=== PATIENT | female | born 1990 | race Caucasian/White ===

== ENCOUNTER 2021-06-23 08:58 | Emergency (ER) | payer MEDICAID ==
[~2021-06-23] VITALS: Ht 165.1 cm; Wt 84.4 kg
[2021-06-23 09:03] VITALS: BP 139/86
--- NOTE | 2021-06-23 09:11 | NUR ---
AMBULATED TO BED 8
[2021-06-23] MEDS ORDERED: ONDANSETRON 4 MG ODT PO ONE (09:15)
--- NOTE | 2021-06-23 09:19 | NUR ---
Troy myrick in ED - 06/23/21 at [address] Lilly is evalutaing pt at bedside
--- NOTE | 2021-06-23 09:20 | NUR ---
30 y/o F BIB self from home c/o nausea, shakiness and fatigue since yesterday. Patient A&Ox4, ambulatory, states she began feeling yesterday. States "Not feeling well" today while at work and has been feeling increasingly more fatigued with "palpitations." Pt states head feels cloudy with "fogginess." Denies chest pain, dysuria, abdominal pain, fever, chills, headache. Reports panic attacks in the past and states symptoms did not feel like previous anxiety symptoms. Denies meds prior to arrival. Bed locked in lowest position, side rails x 1. MEDHX: anxiety Meds: Denies ALLERGIES: DENIES
--- NOTE | 2021-06-23 09:38 | NUR ---
Dr. Lilly is evaluating pt at bedside
--- NOTE | 2021-06-23 09:44 | NUR ---
EMT at bedside for EKG
--- NOTE | 2021-06-23 09:47 | NUR ---
Lab at bedside
[2021-06-23 10:02] LABS: BASOPHILS % (AUTO) 0.5 % (0.0-2.0); EOSINOPHILS # (AUTO) 0.1 K/uL (0-0.4); EOSINOPHILS % (AUTO) 0.7 % (0.0-4.0); HEMATOCRIT 40.3 % (36-48); HEMOGLOBIN 13.6 g/dL (12.0-16.0); LYMPHOCYTES # (AUTO) 1.8 K/uL (2.5-16.5); MEAN CORPUSCULAR HEMOGLOBIN 30 pg (27-31); MEAN CORPUSCULAR HGB CONC 34 g/dL (33-37); MEAN CORPUSCULAR VOLUME 88.2 fL (80-94); MONOCYTES # (AUTO) 0.6 K/uL (0.8-1.0); MONOCYTES % (AUTO) 5.9 % (1.7-9.3); NEUTROPHILS # (AUTO) 7.1 K/uL (1.8-7.7); NEUTROPHILS % (AUTO) 73.9 % (42.2-75.2); PLATELET COUNT (AUTO) 359 K/uL (140-450); RED BLOOD CELL COUNT(AUTO) 4.57 MIL/uL (4.20-5.40); RED CELL DISTRIBUTION WIDTH 13.5 % (11.6-13.7); WHITE BLOOD COUNT (AUTO) 9.6 K/uL (4.8-10.8)
[2021-06-23 10:11] LABS: BILIRUBIN,URINE NEGATIVE (NEGATIVE); BLOOD, URINE 1+ (NEGATIVE); LEUKOCYTE ESTERASE ,URINE 1+ (NEGATIVE); NITRITE, URINE NEGATIVE (NEGATIVE); UGLUCOSE NEGATIVE (NEGATIVE)
[2021-06-23 10:14] LABS: ANION GAP 13.7 (8-16); CREATININE 0.7 mg/dL (0.6-1.3); POTASSIUM 3.7 mmol/L (3.5-5.1)
--- NOTE | 2021-06-23 10:18 | NUR ---
[place] provided for pt. Pt states + relief to nausea. All pt needs met.
[2021-06-23 10:20] LABS: APPEARANCE,URINE HAZY (CLEAR); COLOR,URINE YELLOW (YELLOW)
[2021-06-23 10:27] LABS: URINE AMORPHOUS URATE None Seen /HPF (None Seen)
[2021-06-23 10:29] LABS: FREE T4 (FREE THYROXINE) 0.96 ng/dL (0.76-1.46); THYROID STIMULATING HORMONE 0.63 uIU/mL (0.34-3.74)
[2021-06-23 11:03] VITALS: BP 137/83
[2021-06-23] MEDS ORDERED: ONDA-188 SL (12:31)
[2021-06-23] MEDS ORDERED: CEPH-588 PO (12:31)
--- NOTE | 2021-06-23 12:50 | NUR ---
Patient discharged with v/s stable. Written and verbal after care instructions given and explained. Patient alert, oriented and verbalized understanding of instructions. Ambulatory with steady gait. All questions addressed prior to discharge. ID band removed. Patient advised to follow up with PMD. Rx of Alicia Gore ODT given. Patient educated on indication of medication including possible reaction and side effects. Opportunity to ask questions provided and answered. Addendum: 06/23/21 at 1255 by [facility] Work note provided per pt request. D/c instructions regarding palpitations, fatigue, UTI provided.
== END 2021-06-23 12:50 | disposition home or self-care (01) ==
LOC: MED 08:58
DX: N39.0 Urinary tract infection, site not specified (principal); R53.83 Other fatigue; Z79.899 Other long term (current) drug therapy; Z79.2 Long term (current) use of antibiotics
CPT/HCPCS: 36415; 80048; 81001; 81025; 83735; 84439; 84443; 85025; 87086; 93005; 99284; Q0162

== ENCOUNTER 2022-03-25 13:24 | Emergency (ER) | payer MEDICAID ==
[~2022-03-25] VITALS: Ht 162.6 cm; Wt 80.3 kg
[~2022-03-25 13:24] MED LIST: CEPH-588 PO; ONDA-188 SL
[2022-03-25 13:56] VITALS: BP 119/77
--- NOTE | 2022-03-25 14:04 | NUR ---
VA: RIGHT EYE 20/25, LEFT EYE 20/25, BOTH EYES 20/25
--- NOTE | 2022-03-25 14:30 | NUR ---
C/O L BIG TOE PAIN X 3 DAYS AND C/O BLURRED VISION, SHAKING X TODAY. VA: RIGHT EYE 20/25, LEFT EYE 20/25, BOTH EYES 20/25 PMH: ANXIETY
[2022-03-25] MEDS ORDERED: IBUP-2213 PO (14:51)
[2022-03-25] MEDS ORDERED: CEPH-588 PO (14:51)
--- NOTE | 2022-03-25 15:33 | NUR ---
Patient discharged with v/s stable. Written and verbal after care instructions given and explained. Patient verbalized understanding. Ambulatory with steady gait. All questions addressed prior to discharge. Advised to follow up with PMD.
--- NOTE | 2022-03-25 15:34 | NUR ---
The patient's care was reviewed and supervised by Khang Rviera RN.
== END 2022-03-25 15:33 | disposition home or self-care (01) ==
LOC: MED 13:24
DX: L60.0 Ingrowing nail (principal)
CPT/HCPCS: 81002; 81025; 99283

== ENCOUNTER 2022-07-16 19:18 | Emergency (ER) | payer MEDICAID ==
[~2022-07-16] VITALS: Ht 165.1 cm; Wt 88.9 kg
[~2022-07-16 19:18] MED LIST changes: +IBUP-2213 PO
[2022-07-16 19:27] VITALS: BP 141/86
[2022-07-16 19:53] LABS: BILIRUBIN,URINE NEGATIVE (NEGATIVE); BLOOD, URINE 2+ (NEGATIVE); COLOR,URINE YELLOW (YELLOW); LEUKOCYTE ESTERASE ,URINE 1+ (NEGATIVE); NITRITE, URINE NEGATIVE (NEGATIVE); PH,URINE 5.5 (5.0-9.0); UGLUCOSE NEGATIVE (NEGATIVE)
[2022-07-16 19:54] LABS: APPEARANCE,URINE HAZY (CLEAR)
[2022-07-16 20:09] LABS: RBC,URINE 0-5 /HPF (0-5)
[2022-07-16] MEDS ORDERED: FLUC150T PO (20:13)
[2022-07-16] MEDS ORDERED: ONDA-188 PO (20:13)
[2022-07-16] MEDS ORDERED: CEPH-588 PO (20:13)
[2022-07-16] MEDS ORDERED: LIDOCAINE MPF 1% 5 ML ONE (20:32)
[2022-07-16] MEDS ORDERED: cefTRIAXone 1,000 MG VIAL ONE (20:32)
[2022-07-16] MEDS: ONDANSETRON 4 MG ODT PO ONE (20:36)
[2022-07-16] MEDS: cefTRIAXone 1,000 MG in LIDOCAINE MPF 1% 2.1 ML IM ONE (20:37)
[2022-07-16 20:52] VITALS: BP 127/85
== END 2022-07-16 20:52 | disposition home or self-care (01) ==
LOC: MED 19:18
DX: N39.0 Urinary tract infection, site not specified (principal); R11.0 Nausea; Z79.899 Other long term (current) drug therapy
CPT/HCPCS: 81001; 81025; 87086; 96372; 99283; J0696; J2001; Q0162

== ENCOUNTER 2022-08-28 07:34 | Emergency (ER) | payer MEDICAID ==
[~2022-08-28] VITALS: Ht 165.1 cm; Wt 89.5 kg
[~2022-08-28 07:34] MED LIST changes: +FLUC150T PO; +ONDA-188 PO
[2022-08-28 07:37] VITALS: BP 140/77
--- NOTE | 2022-08-28 07:46 | NUR ---
PT AMB TO BED 3
[2022-08-28] MEDS ORDERED: PHEN177S23 PO (07:48)
[2022-08-28] MEDS ORDERED: NAPR-1704 PO (07:48)
--- NOTE | 2022-08-28 07:50 | NUR ---
BIB SELF C/O COUGH X LAST NIGHYT, SORE THROAT& FEVER X 2 DAYS. DENIES N/V/D; SKIN IS PINK/WARM/DRY; AAOX4 WITH EVEN AND STEADY GAIT; LUNGS CLEAR BL. PT DENIES ANY FEVER, CP OR SOB AT THIS TIME; PATIENT STATES PAIN OF 7/10 AT THIS TIME. PATIENT POSITIONED FOR COMFORT; HOB ELEVATED; BEDRAILS UP X1; BED DOWN. ER MD MADE AWARE OF PT STATUS.
[2022-08-28 08:05] VITALS: BP 132/72
--- NOTE | 2022-08-28 08:05 | NUR ---
Patient discharged with v/s stable. Written and verbal after care instructions given and explained. Patient alert, oriented and verbalized understanding of instructions. Ambulatory with steady gait. All questions addressed prior to discharge. ID band removed. Patient advised to follow up with PMD. Rx of NAPROSYN, PHENOL given. Patient educated on indication of medication including possible reaction and side effects. Opportunity to ask questions provided and answered.
[2022-08-29] MEDS ORDERED: AMOX500C25 PO (05:11)
[2022-08-29] MEDS ORDERED: ACET-8905 PO (05:11)
== END 2022-08-28 08:05 | disposition home or self-care (01) ==
LOC: MED 07:34
DX: J03.90 Acute tonsillitis, unspecified (principal); Z20.822 Contact with and (suspected) exposure to COVID-19; Z90.49 Acquired absence of other specified parts of digestive tract; Z79.899 Other long term (current) drug therapy; Z98.890 Other specified postprocedural states
CPT/HCPCS: 87081; 99283

== ENCOUNTER 2022-08-29 03:57 | Emergency (ER) | payer MEDICAID ==
[~2022-08-29] VITALS: Ht 165.1 cm; Wt 89.4 kg
[~2022-08-29 03:57] MED LIST changes: +NAPR-1704 PO; +PHEN177S23 PO
[2022-08-29 04:12] VITALS: BP 117/71
--- NOTE | 2022-08-29 04:18 | NUR ---
Strep A swabs collected and sent to lab.
[2022-08-29] MEDS ORDERED: ACETAMINOPHEN EXTRA STRENGTH 500 MG TAB PO ONE (04:25)
--- NOTE | 2022-08-29 04:51 | NUR ---
PT AMB TO ER BED 03.
--- NOTE | 2022-08-29 05:00 | NUR ---
Patient resting in bed, awake, chest rise and fall symmetrical, no s/s of discomfort or distress.
[2022-08-29] MEDS ORDERED: DEXAMETHASONE 10 MG/ML VIAL PO ONE (05:10)
[2022-08-29] MEDS ORDERED: KETOROLAC 30 MG/ML VIAL IM ONE (05:10)
[2022-08-29] MEDS ORDERED: ACET-8905 PO (05:11)
[2022-08-29] MEDS ORDERED: AMOX500C25 PO (05:11)
[2022-08-29 05:39] VITALS: BP 112/85
== END 2022-08-29 05:40 | disposition home or self-care (01) ==
LOC: MED 03:57
DX: J02.9 Acute pharyngitis, unspecified (principal); R50.9 Fever, unspecified; M79.10 Myalgia, unspecified site
CPT/HCPCS: 87081; 96372; 99283; J1100; J1885

== ENCOUNTER 2022-10-27 12:45 | Emergency (ER) | payer MEDICAID ==
[~2022-10-27] VITALS: Ht 165.1 cm; Wt 84.4 kg
[~2022-10-27 12:45] MED LIST changes: +ACET-8905 PO; +AMOX500C25 PO
[2022-10-27 13:10] VITALS: BP 145/86
[2022-10-27] MEDS ORDERED: IBUP-2213 PO (14:09)
[2022-10-27 14:26] VITALS: BP 145/86
== END 2022-10-27 14:27 | disposition home or self-care (01) ==
LOC: MED 12:45
DX: S80.02XA Contusion of left knee, initial encounter (principal); W22.8XXA Striking against or struck by other objects, initial encounter; Y93.89 Activity, other specified; Y92.89 Other specified places as the place of occurrence of the external cause; Y99.8 Other external cause status
CPT/HCPCS: 73562; 81025; 99283

== ENCOUNTER 2022-10-28 07:42 | Emergency (ER) | payer MEDICAID ==
[~2022-10-28] VITALS: Ht 162.6 cm; Wt 83.9 kg
[2022-10-28 07:47] VITALS: BP 130/85
--- NOTE | 2022-10-28 08:30 | NUR ---
Patient discharged with v/s stable. Written and verbal after care instructions given and explained. Patient verbalized understanding. Ambulatory with to car. All questions addressed prior to discharge. Advised to follow up with PMD.
== END 2022-10-28 08:30 | disposition home or self-care (01) ==
LOC: MED 07:42
DX: S80.02XA Contusion of left knee, initial encounter (principal); Z90.49 Acquired absence of other specified parts of digestive tract; Z98.890 Other specified postprocedural states; Z79.899 Other long term (current) drug therapy; Z79.1 Long term (current) use of non-steroidal anti-inflammatories (NSAID); Z79.2 Long term (current) use of antibiotics; Z79.891 Long term (current) use of opiate analgesic; X58.XXXA Exposure to other specified factors, initial encounter; Y92.89 Other specified places as the place of occurrence of the external cause; Y93.89 Activity, other specified; Y99.8 Other external cause status
CPT/HCPCS: 99283

== ENCOUNTER 2022-12-02 07:31 | Emergency (ER) | payer MEDICAID ==
[~2022-12-02] VITALS: Ht 165.1 cm; Wt 86.2 kg
[2022-12-02 07:36] VITALS: BP 141/80
[2022-12-02] MEDS ORDERED: DEXAMETHASONE 10 MG/ML VIAL IM ONE (08:15)
[2022-12-02] MEDS ORDERED: IBUPROFEN CHILDRENS 100 MG/5 ML UDC PO ONE (08:15)
[2022-12-02] MEDS ORDERED: AMOX250P30 PO (08:17)
[2022-12-02] MEDS ORDERED: IBUP100S26 PO (08:17)
--- NOTE | 2022-12-02 08:28 | NUR ---
pt swabbed for strep x2. walked and handed to lab
[2022-12-02 09:01] VITALS: BP 126/74
--- NOTE | 2022-12-02 09:01 | NUR ---
Patient discharged with v/s stable. Written and verbal after care instructions about tonsillitis given and explained. Patient alert, oriented and verbalized understanding of instructions. Ambulatory with steady gait. All questions addressed prior to discharge. ID band removed. Patient advised to follow up with PMD. Rx of amoxicllin and ibuprofen given. Patient educated on indication of medication including possible reaction and side effects. Opportunity to ask questions provided and answered. DR GAUTHIER AWARE OF VITALS, OKAY TO D/C
--- NOTE | 2022-12-04 18:17 | NUR ---
LATE ENTRY. RECEIVED POSITIVE THROAT CULTURE. FORM GIVEN TO DR MASON. TREATMENT APPROPRIATE. FORM PLACED IN BINDER
== END 2022-12-02 09:01 | disposition home or self-care (01) ==
LOC: MED 07:31
DX: J03.00 Acute streptococcal tonsillitis, unspecified (principal); J02.9 Acute pharyngitis, unspecified; Z98.890 Other specified postprocedural states; Z79.899 Other long term (current) drug therapy; Z90.49 Acquired absence of other specified parts of digestive tract
CPT/HCPCS: 87081; 96372; 99283; J1100